=== PATIENT | male | born 1980 | race Caucasian/White ===

== ENCOUNTER 2020-04-05 20:47 | Emergency (ER) | payer OTHER ==
[~2020-04-05] VITALS: Ht 190.5 cm; Wt 108.9 kg
[2020-04-05] MEDS ORDERED: CORTISPORIN OTI10 ML OTIC (21:42)
[2020-04-05 21:50] VITALS: BP 152/78
== END 2020-04-05 21:51 | disposition home or self-care (01) ==
LOC: M.ERS 20:47
DX: S00.451A Superficial foreign body of right ear, initial encounter (principal); F17.210 Nicotine dependence, cigarettes, uncomplicated; X58.XXXA Exposure to other specified factors, initial encounter; Y93.89 Activity, other specified; Y92.89 Other specified places as the place of occurrence of the external cause; Y99.8 Other external cause status